=== PATIENT | male | born 1980 | race Caucasian/White ===

== ENCOUNTER 2016-07-29 00:58 | Emergency (ER) | payer SELFPAY ==
[~2016-07-29] VITALS: Ht 172.7 cm; Wt 77.2 kg
[~2016-07-29 00:58] MED LIST: HYDR-3307 PO; METH500T97 PO
[2016-07-29 00:59] VITALS: BP 159/94
[2016-07-29] MEDS ORDERED: LIDOCAINE 1%-EPI 1:100K, 50ML ONE (01:14)
[2016-07-29] MEDS ORDERED: LIDOCAINE 1%-EPI 1:100K, 20ML SQ ONE (01:30)
[2016-07-29] MEDS ORDERED: DIPH,PERTUSS(ACELL),TET VAC/PF 0.5 ML IM-VACC ONE (01:30)
== END 2016-07-29 01:53 | disposition home or self-care (01) ==
LOC: ED 01:45
DX: L02.213 Cutaneous abscess of chest wall (principal); R07.89 Other chest pain
CPT/HCPCS: 10060

== ENCOUNTER 2016-08-02 09:00 | Emergency (ER) | payer SELFPAY ==
[~2016-08-02] VITALS: Ht 172.7 cm; Wt 76.9 kg
[2016-08-02 09:02] VITALS: BP 147/77
== END 2016-08-02 09:44 | disposition home or self-care (01) ==
LOC: ED 09:38
DX: L29.9 Pruritus, unspecified (principal)
CPT/HCPCS: 99282

== ENCOUNTER 2016-08-04 11:52 | Emergency (ER) | payer SELFPAY ==
[~2016-08-04] VITALS: Ht 172.7 cm; Wt 76.6 kg
[2016-08-04 12:44] VITALS: BP 123/78
== END 2016-08-04 12:47 | disposition home or self-care (01) ==
LOC: ED 12:25
DX: L02.213 Cutaneous abscess of chest wall (principal)
CPT/HCPCS: 99283

== ENCOUNTER 2017-04-16 16:23 | Emergency (ER) | payer MEDICAID ==
[~2017-04-16] VITALS: Ht 172.7 cm; Wt 76.0 kg
[2017-04-16] MEDS ORDERED: LIDOCAINE 1%, 10ML ONE (17:11)
[2017-04-16] MEDS ORDERED: LIDOCAINE 1%, 10ML INFIL ONE (17:30)
[2017-04-16 18:19] VITALS: BP 147/93
== END 2017-04-16 18:20 | disposition home or self-care (01) ==
LOC: ED 18:14
DX: K13.0 Diseases of lips (principal)
CPT/HCPCS: 10060; 99283; J3490

== ENCOUNTER 2017-12-14 10:17 | Emergency (ER) | payer SELFPAY ==
[~2017-12-14] VITALS: Ht 172.7 cm; Wt 86.6 kg
[2017-12-14 10:22] VITALS: BP 140/96
[2017-12-14] MEDS ORDERED: HYDROcodone/APAP 5/325 TABLET ONE (10:39)
[2017-12-14] MEDS ORDERED: HYDROcodone/APAP 5/325 TABLET PO ONE (11:00)
== END 2017-12-14 11:50 | disposition home or self-care (01) ==
LOC: ED 11:44
DX: S90.32XA Contusion of left foot, initial encounter (principal); F17.200 Nicotine dependence, unspecified, uncomplicated; W19.XXXA Unspecified fall, initial encounter; Y93.39 Activity, other involving climbing, rappelling and jumping off; Y99.8 Other external cause status; Y92.830 Public park as the place of occurrence of the external cause
CPT/HCPCS: 99284